=== PATIENT | female | born 1990 | race Caucasian/White ===

== ENCOUNTER 2019-08-15 19:57 | Emergency (ER) | payer OTHER ==
--- NOTE | 2019-08-15 20:51 | EDM.PDOC ---
ED HPI GENERAL MEDICAL PROBLEM - General Chief Complaint: DEBLOCK[facility] Problem Time Seen by Provider: 08/15/19 20:31 Source of Information: Reports: Patient History Limitations: Reports: No Limitations - History of Present Illness INITIAL COMMENTS - FREE TEXT/NARRATIVE: patient is a pleasant 28-year-old female who presents tonight with concern for miscarriage. She states that she has been approximately 13 weeks and 4 days by dates, and that has been followed by ultrasound for unknown hematoma which by description sounds like a subchorionic hemorrhage. It was noted that it has shrunk between Thursday and Thursday. She started bleeding on Thursday and Thursday, and then tonight she passed products of conception at approximately 7: 20 PM. She feels a lot of lower abdominal cramping, but iotherwise okay. She hansen no fever, chills or sweats. She has no back or flank tenderness. She is having ongoing bleeding, with clots. No bright red blood. Her blood type is A+. She is otherwise healthy with no medical problems lower abdomen Pain Score (Numeric/FACES): 8 - Related Data Allergies Allergy/AdvReac Type Severity Reaction Status Date / Time amoxicillin Allergy Rash Verified 08/15/19 20:24 latex Allergy Mouth Sores Verified 08/15/19 20:24 Home Meds: Home Meds NK [No Known Home Meds] 08/15/19 [History] Past Medical History : 1 Para: 0 Social & Family History - Family History Family Medical History: Noncontributory - Tobacco Use Smoking Status *Q: Never Smoker - Alcohol Use Alcohol Use History: No - Recreational Drug Use Recreational Drug Use: No - Living Situation & Occupation Living situation: Reports: with Significant Other Occupation: Employed ED ROS GENERAL - Review of Systems Review Of Systems: ROS reveals no pertinent complaints other than HPI. ED EXAM, GENERAL - Physical Exam Exam: See Below Free Text/Narrative:: Gen.: Alert, well-appearing distress. Head is atraumatic, throat without erythema and mucous membranes are moist. Neck is supple and there is no cervical lymphadenopathy. Lungs are clear throughout with no wheezes or crackles and heart is regular rate and rhythm. Abdomen positive bowel sounds, soft nondistended nontender with treatment no rebound or guarding. Peripheral pulses +2 in both the upper and lower extremities and there is no lower extremity edema. Pelvic exam shows open cervical os and blood and clots in the vaginal vault. Otherwise normal external female genitalia. She brought with her a fully formed fetus approximately 5 cm in length which she passed at home. Course - Vital Signs Text/Narrative:: spontaneous . Her abdominal exam is benign, blood type A+. She has been followed outpatient already by ultrasound, we will not be able to obtain a repeat tonight. Labs ordered. Last Recorded V/S: Last Vital Signs Temp 36.6 C 08/15/19 22:30 Pulse 72 08/15/19 22:30 Resp 16 08/15/19 22:30 BP 122/67 08/15/19 22:30 Pulse Ox 100 08/15/19 22:30 - Orders/Labs/Meds Labs: Laboratory Tests 08/15/19 08/15/19 Range/Units 20:28 20:28 WBC 7.3 (4.5-12.0) X10-3/uL RBC 3.67 (3.23-5.20) x10(6)uL Hgb 11.7 (11.5-15.5) g/dL Hct 33.9 (30.0-51.3) % MCV 92.4 (80-96) fL MCH 31.8 (27.7-33.6) pg MCHC 34.4 (32.2-35.4) g/dL RDW 11.6 (11.5-15.5) % Plt Count 286 (125-369) X10(3)uL HCG, Quant 40676 (<5) mIU/mL - Re-Assessments/Exams Free Text/Narrative Re-Assessment/Exam: review labs, follow-up with [facility]. She will call them in the morning. Discussed expected course, emotional impact, self care over the next few days, and signs or symptoms which would prompt need for immediate followup. Departure - Departure Time of Disposition: 22:36 Disposition: Home, Self-Care 01 Condition: Fair Clinical Impression: Spontaneous - Discharge Information *PRESCRIPTION DRUG MONITORING PROGRAM REVIEWED*: Not Applicable *COPY OF PRESCRIPTION DRUG MONITORING REPORT IN PATIENT JOSH: Not Applicable Instructions: Miscarriage Referrals: Dorcas Mathur MD [Primary Care Provider] - Forms: ED Department Discharge Additional Instructions: may take ibuprofen 600mg up to three times per day if needed for cramping/ abdominal pain return if feeling lightheaded, heart beating very fast, or fever, or severely worsening pain call Dr. Scruggs's office in the morning to discuss next steps [facility] [place] [address] Hb 11.7 A+ per patient report
== END 2019-08-15 22:46 | disposition home or self-care (01) ==
LOC: FB.OBCHECK 19:57 → FB.ED 19:57 → EDSTATUS 20:19 → FB.ED 22:46
DX: O03.9 Complete or unspecified spontaneous abortion without complication (principal); Z88.1 Allergy status to other antibiotic agents; Z91.040 Latex allergy status
CPT/HCPCS: 36415; 84702; 85027; 99284

== ENCOUNTER 2025-06-09 10:26 | Emergency (ER) | payer OTHER ==
[2025-06-09] MEDS ORDERED: Ketorolac 30 MG/ML SDV IVPUSH ONE (10:55)
[2025-06-09] MEDS: Ondansetron 4 MG/2 ML SDV IVPUSH ONE (11:10)
[2025-06-09] MEDS: Ketorolac 15 MG/ML SDV IVPUSH ONE (11:11)
[2025-06-09 11:17] LABS: MEAN PLATELET VOLUME 8.0 fL (7.1-12.4); PLATELET COUNT,PLT 148 x10(3)uL (151-488); RED BLOOD CELL COUNT 3.55 x10(6)uL (3.60-5.20); RED CELL DISTRIBUTION WIDTH 12.9 % (12.3-16.5)
[2025-06-09 11:23] LABS: WHITE BLOOD CELL COUNT,WBC 0.9 x10-3/uL (3.0-10.3)
[2025-06-09 11:31] LABS: BLOOD UREA NITROGEN,BUN 12 mg/dL (7-18); CARBON DIOXIDE,CO2 25 mmol/L (21-32); CHLORIDE,CL 102 mmol/L (100-110); CREATININE 1.0 mg/dL (0.55-1.02); ESTIMATED GFR 76 mL/min (>60); GLUCOSE RANDOM 164 mg/dL (80-116); POTASSIUM,K 3.7 mmol/L (3.5-5.3); SODIUM,NA 137 mmol/L (135-145)
[2025-06-09 11:37] LABS: A/G RATIO 0.9; ALANINE AMINOTRANSFERASE,ALT 50 U/L (12-36); ASPARTATE AMNIOTRANSFERASE,AST 42 IU/L (5-25); BILIRUBIN TOTAL 2.1 mg/dL (0.1-1.3); PROTEIN TOTAL,TP 6.3 g/dL (6.0-8.0)
[2025-06-09 12:12] LABS: BAND PERCENT MAN 6 % (0-6); EOSINOPHILS PERCENT MAN 2 % (0-5); LYMPHOCYTES PERCENT MAN 8 % (13-37); METAMYELOCYTE PERCENT MAN 2 % (0-0); MONOCYTES PERCENT MAN 2 % (4-12); SEG NEUTROPHILS PERCENT MAN 80 % (46-82)
[2025-06-09] MEDS: fentaNYL 100 MCG/2 ML SDV IVPUSH ONE (13:10)
[2025-06-09 13:26] LABS: GLUCOSE,URINE NORMAL (NORMAL); OCCULT BLOOD,URINE MODERATE (NEGATIVE)
[2025-06-09 13:27] LABS: APPEARANCE,URINE SLIGHTLY CLOUDY (CLEAR)
[2025-06-09 13:35] LABS: SQUAMOUS EPITHELIAL CELLS,UR MODERATE (NS,R,O)
[2025-06-09] MEDS: Iopamidol 755 Mg/ML 100 ML Bottle IV SCH (13:56)
[2025-06-09] MEDS: HYDROmorphone 2 MG/ML SDV IVPUSH ONE (15:47)
== END 2025-06-09 16:05 ==
LOC: FB.ED 10:26
DX: K35.30 Acute appendicitis with localized peritonitis, without perforation or gangrene (principal); K81.9 Cholecystitis, unspecified; J18.9 Pneumonia, unspecified organism; D72.810 Lymphocytopenia; Z88.0 Allergy status to penicillin; Z91.040 Latex allergy status; Z79.899 Other long term (current) drug therapy
CPT/HCPCS: 36415; 74177; 80053; 81001; 81025; 83690; 85025; 96361; 96365; 96375; 99285; J1171; J1885; J2405; J2543; J3010; J7030; Q9967